=== PATIENT | female | born 1960 | race Caucasian/White ===

== ENCOUNTER 2018-09-05 23:36 | Emergency (ER) | payer MEDICAID, OTHER ==
[~2018-09-05] VITALS: Ht 154.9 cm; Wt 60.3 kg
[2018-09-05 23:58] VITALS: BP 132/81
== END 2018-09-06 00:07 | disposition left against medical advice (07) ==
LOC: ER 23:44
DX: M79.662 Pain in left lower leg (principal); Z53.21 Procedure and treatment not carried out due to patient leaving prior to being seen by health care provider